=== PATIENT | male | born 1975 | race Caucasian/White ===

== ENCOUNTER 2019-07-31 19:32 | Emergency (ER) | payer MEDICAID ==
[~2019-07-31] VITALS: Ht 180.3 cm; Wt 117.9 kg
[2019-07-31 19:38] VITALS: Ht 180.3 cm; Wt 117.9 kg
[2019-07-31 20:52] LABS: BASOPHIL % 0.5 % (0-2); PLATELET COUNT 337 x10^3mcL (130-400); RED CELL DISTRIBUTION WIDTH 14.1 % (11.5-14.5)
[2019-07-31 21:16] LABS: AMPHETAMINE QUAL UR NONE DETECTED (See below)
[2019-07-31 21:33] LABS: CALCIUM 8.7 mg/dL (8.5-10.1); CARBON DIOXIDE 21.3 mmol/L (21-32); CHLORIDE SERUM 92 mmol/L (98-107); CREATININE SERUM 1.1 mg/dL (0.7-1.3); GFR1 > 60 mL/min; GLUCOSE SERUM 157 mg/dL (74-106); POTASSIUM SERUM 3.6 mmol/L (3.5-5.1); SODIUM SERUM 130 mmol/L (136-145)
[2019-07-31 21:47] LABS: ALBUMIN 4.1 g/dL (3.4-5.0); ALKALINE PHOSPHATASE 80 U/L (46-116); ALT/SGPT 54 U/L (16-63); AST/SGOT 37 U/L (15-37); BILIRUBIN DIRECT 0.28 mg/dL (0.0-0.2); BILIRUBIN TOTAL 0.91 mg/dL (0.20-1.00); LIPASE 195 IU/L (73-393)
[2019-07-31 22:56] VITALS: BP 147/102
== END 2019-07-31 22:56 | disposition left against medical advice (07) ==
LOC: ED 19:32
PROVIDERS: Student in an Organized Health Care Education/Training Program
DX: I60.9 Nontraumatic subarachnoid hemorrhage, unspecified (principal); R56.9 Unspecified convulsions
CPT/HCPCS: G0480; J1953; J7030; Q0092

== ENCOUNTER 2020-02-15 15:08 | Emergency (ER) | payer SELFPAY ==
[~2020-02-15] VITALS: Ht 180.3 cm; Wt 117.9 kg
[2020-02-15 15:15] VITALS: Ht 180.3 cm; Wt 117.9 kg
[2020-02-15 16:58] LABS: BASOPHIL % 0.6 % (0-2); PLATELET COUNT 316 x10^3mcL (130-400)
[2020-02-15 16:59] LABS: RED CELL DISTRIBUTION WIDTH 15.6 % (11.5-14.5)
[2020-02-15 17:14] LABS: CALCIUM 8.6 mg/dL (8.5-10.1); CARBON DIOXIDE 27.7 mmol/L (21-32); CHLORIDE SERUM 101 mmol/L (98-107); CREATININE SERUM 0.7 mg/dL (0.7-1.3); GFR1 > 60 mL/min; GLUCOSE SERUM 101 mg/dL (74-106); POTASSIUM SERUM 4.1 mmol/L (3.5-5.1); SODIUM SERUM 136 mmol/L (136-145)
[2020-02-15 17:15] LABS: ALBUMIN 3.5 g/dL (3.4-5.0); ALKALINE PHOSPHATASE 91 U/L (46-116); ALT/SGPT 104 U/L (16-63); AST/SGOT 106 U/L (15-37); BILIRUBIN TOTAL 0.34 mg/dL (0.20-1.00); MAGNESIUM 1.7 mg/dL (1.8-2.4); TOTAL PROTEIN, SERUM 6.6 g/dL (6.4-8.2)
[2020-02-15 20:03] VITALS: BP 140/93
== END 2020-02-15 20:03 | disposition home or self-care (01) ==
LOC: ED 15:08
PROVIDERS: Emergency Medicine
DX: G40.909 Epilepsy, unspecified, not intractable, without status epilepticus (principal); E83.42 Hypomagnesemia
CPT/HCPCS: J1953; J2060; J3475; J7030